=== PATIENT | female | born 1980 | race Two or more races ===

== ENCOUNTER → 2024-03-03 | Outpatient (CLI) | payer MEDICAID, SELFPAY ==
--- NOTE | 2024-03-03 08:00 | XR_ITS ---
Examination: Screening digital mammography, bilateral Computer aided detection 3-D breast Tomosynthesis, bilateral Date and time of exam: March 03, 2024 0750 hours Compared to mammograms dating to February 01, 2020 Indication: Screening Technique: Nonmagnified MLO, CC views of the breasts to been obtained, reconstructed from 3-D Tomosynthesis images. R2 computer aided detection program utilized for evaluation of suspicious masses and/or abnormal calcifications. 3-D Tomosynthesis images obtained. Findings: The breasts are heterogeneously dense, which may obscure small masses Breast biopsy marker upper outer left breast Benign calcifications. No interval suspicious masses Impression: BI-RADS category II: Benign Findings. Recommend 1 year follow-up mammogram.
== END | disposition home or self-care (01) ==
PROVIDERS: Referring Provider Physician Assistant; Visit Provider Physician Assistant
DX: Z12.31 Encounter for screening mammogram for malignant neoplasm of breast (principal); R92.323 Mammographic fibroglandular density, bilateral breasts; R92.1 Mammographic calcification found on diagnostic imaging of breast
CPT/HCPCS: 77063; 77067

== ENCOUNTER → 2024-04-15 | Outpatient (CLI) | payer MEDICAID, SELFPAY ==
--- NOTE | 2024-04-15 07:15 | XR_ITS ---
Examination: Transvaginal ultrasound of the pelvis, complete Technique: Transvaginal sonographic images pelvis performed using elliott scale imaging Exam date and time: April 15, 2024 0755 hours INDICATIONS: Vaginal bleeding beginning 3 months ago FINDINGS: Uterus 10.3 x 4.8 x 6.4 cm Low echogenicity in the cervix 2.2 x 1.9 x 3.0 cm Fundal endometrial stripe 1.6 cm Right ovary 2.6 cm arterial flow Left ovary 4.4 cm arterial flow to 0.4 x 2.6 cm cyst IMPRESSION: Findings most consistent with blood clot in the cervix but clinical correlation advised Recommend 1-2 day follow-up transvaginal pelvic sonography .
== END | disposition home or self-care (01) ==
LOC: CDIM 07:25
PROVIDERS: PCP Physician Assistant; Referring Provider Physician Assistant; Visit Provider Physician Assistant
DX: N93.9 Abnormal uterine and vaginal bleeding, unspecified (principal)
CPT/HCPCS: 76830